=== PATIENT | female | born 1990 | race African-American/Black ===

== ENCOUNTER 2018-06-30 17:06 | Emergency (ER) | payer MEDICAID, OTHER ==
[~2018-06-30] VITALS: Ht 175.3 cm; Wt 149.7 kg
[2018-06-30 18:43] LABS: Basophils # (auto) 0.1 uL; Basophils % (auto) 0.6 % (0.0-2.0); Eosinophils # (auto) 0 uL; Eosinophils % (auto) 0.2 % (0.0-7.0); Hematocrit 45.7 % (36.0-46.0); Hemoglobin 14.9 g/dL (12.2-16.2); Lymphocytes # (auto) 3.4 uL; Lymphocytes % (auto) 26.8 % (10.0-50.0); Mean Corpuscular Hgb Conc. 32.6 g/dL (32.0-36.0); Mean Corpuscular Volume 82.8 fL (80.0-100.0); Monocytes % (auto) 7.8 % (0.0-12.0); Neutrophils # (auto) 8.2 uL; Neutrophils % (auto) 64.6 % (37.0-80.0); Nucleated Red Blood Cells % 0.2 %; Platelet Count (auto) 273 10^3/uL (140-450); Red Blood Cells 5.52 10^6/uL (4.0-5.20); Red Cell Distribution Width 15.6 % (11.8-14.3); White Blood Cell 12.6 10^3/uL (4.4-10.8)
[2018-06-30] MEDS ORDERED: SODIUM CHLORIDE 0.9% 1,000 ML IVB ONE (18:52)
[2018-06-30] MEDS ORDERED: LORazepam 2MG/ML-1ML VIAL IV ONE ×2 (19:00→22:15)
[2018-06-30 19:07] LABS: Albumin 3.8 g/dL (3.4-5.0); Calcium 9.7 mg/dL (8.5-10.1); Potassium 3.7 mmol/L (3.5-5.1)
[2018-06-30 19:10] LABS: Bilirubin, Total 0.7 mg/dL (0.2-1.0); Total Protein 8.3 g/dL (6.4-8.2)
[2018-06-30 19:29] LABS: Salicylate < 1.7 mg/dL (2.8-20.0)
[2018-06-30 19:54] LABS: Acetaminophen < 2.0 ug/mL (10-30)
[2018-06-30 20:07] VITALS: BP 105/57
[2018-06-30] MEDS ORDERED: LORazepam 2MG/ML-1ML VIAL ONE (22:16)
== END 2018-06-30 22:34 | disposition left against medical advice (07) ==
LOC: EDBD 17:06 → ER 17:06
DX: F19.10 Other psychoactive substance abuse, uncomplicated (principal); F15.90 Other stimulant use, unspecified, uncomplicated; E78.5 Hyperlipidemia, unspecified; E07.9 Disorder of thyroid, unspecified; Z53.29 Procedure and treatment not carried out because of patient's decision for other reasons
CPT/HCPCS: 36415; 80053; 80329; 85025; 93005; 96374; 96376; 99284; J2060